=== PATIENT | female | born 1980 | race Caucasian/White ===

== ENCOUNTER 2017-11-09 04:18 | Observation (INO) | payer MEDICAID, OTHER ==
[~2017-11-09] VITALS: Ht 157.5 cm; Wt 64.0 kg
[2017-11-09 05:33] LABS: BASOPHILS # (AUTO) 0.04 x10^3/uL (0-0.1); BASOPHILS % (AUTO) 1 % (0-1); EOSINOPHILS % (AUTO) 0 % (1-7); LYMPHOCYTES # (AUTO) 2.39 x10^3/uL (1-3.4); LYMPHOCYTES % (AUTO) 27 % (22-44); MD NO; MEAN CORPUSCULAR HEMOGLOBIN 29.7 pg (27.0-34.8); MEAN CORPUSCULAR HGB CONC 33.8 g/dL (32.4-35.8); MEAN CORPUSCULAR VOLUME 87.8 fL (80-100); MEAN PLATELET VOLUME 8.8 fL (7.4-10.4); MONOCYTES # (AUTO) 0.72 x10^3/uL (0.2-0.8); MONOCYTES % (AUTO) 8 % (2-9); NEUTROPHILS % (AUTO) 64 % (42-75); PLATELET COUNT 223 x10^3/uL (130-400); RED BLOOD COUNT 4.57 x10^6/uL (3.82-5.3); RED CELL DISTRIBUTION WIDTH 13.9 % (9.6-15.2)
[2017-11-09 05:41] LABS: ALANINE AMINOTRANSFERASE 21 U/L (12-78); ALBUMIN 3.9 g/dL (3.4-5.0); ANION GAP 5 mmol/L (5-15); CALCIUM 8.5 mg/dL (8.5-10.1); CHLORIDE 112 mmol/L (98-107); CREATININE 0.77 mg/dL (0.55-1.02); SALICYLATE LEVEL 1.7 mg/dL (2.8-20.0)
[2017-11-09 05:44] LABS: ACETAMINOPHEN < 2 mcg/mL (10-30)
[2017-11-09 05:46] LABS: ALKALINE PHOSPHATASE 130 U/L (45-117); BILIRUBIN,TOTAL 0.6 mg/dL (0.2-1.0); TOTAL PROTEIN 7.6 g/dL (6.4-8.2)
[2017-11-09 05:48] LABS: AMPHETAMINE SCREEN, URINE Negative (Negative); BARBITURATE SCREEN, URINE Negative (Negative); BENZODIAZEPINE SCREEN, URINE Negative (Negative); CANNABINOID SCREEN, URINE Positive (Negative); COCAINE SCREEN, URINE Negative (Negative); METHADONE SCREEN, URINE Negative (Negative); OPIATE SCREEN, URINE Negative (Negative)
[2017-11-09] MEDS ORDERED: SODIUM CHLORIDE 0.9% 1,000ML IVBOLUS ONE (07:30)
[2017-11-09] MEDS ORDERED: hydrALAzine 20 MG/ML, 1ML IVPush PRN (09:00)
[2017-11-09] MEDS ORDERED: LABETALOL 5MG/ML, 20ML IVPush PRN (09:00)
[2017-11-09] MEDS ORDERED: HEPARIN 5,000 UNITS/ML, 1ML ONE (09:13)
[2017-11-09] MEDS ORDERED: TRAZ50TA18 PO (09:52)
[2017-11-09] MEDS ORDERED: CLON0.5T PO (09:52)
[2017-11-09] MEDS ORDERED: ANTIHYPERTENSIVE (09:52)
[2017-11-09] MEDS ORDERED: ANTIDEPRESSANT (09:53)
[2017-11-09] MEDS ORDERED: PROP60CA8 PO (09:54)
[2017-11-09] MEDS: HEPARIN 5,000 UNITS/ML, 1ML SQ SCH ×2 (09:54→17:00)
[2017-11-09 11:30] VITALS: BP_SYST 120; BP_SYST 137; BP_DIAS 78; BP_DIAS 88
[2017-11-09 20:00] VITALS: BP 111/60
[2017-11-10] MEDS: HEPARIN 5,000 UNITS/ML, 1ML SQ SCH ×3 (01:00→16:55)
[2017-11-10 05:45] LABS: ALBUMIN 3.3 g/dL (3.4-5.0); ANION GAP 5 mmol/L (5-15); CALCIUM 7.8 mg/dL (8.5-10.1); CHLORIDE 109 mmol/L (98-107)
[2017-11-10 05:48] LABS: ALANINE AMINOTRANSFERASE 17 U/L (12-78); ALKALINE PHOSPHATASE 80 U/L (45-117); BILIRUBIN,TOTAL 1.2 mg/dL (0.2-1.0); CREATININE 0.79 mg/dL (0.55-1.02); TOTAL PROTEIN 6.7 g/dL (6.4-8.2)
[2017-11-10 07:37] VITALS: BP 109/73
[2017-11-10] MEDS: ACETAMINOPHEN 325 MG TABLET PO PRN (19:19)
[2017-11-10 19:28] VITALS: BP 99/67
[2017-11-10] MEDS: TEMAZEPAM 15 MG CAPSULE PO PRN (23:53)
[2017-11-11] MEDS ORDERED: TEMAZEPAM 15 MG CAPSULE PO PRN
[2017-11-11] MEDS: HEPARIN 5,000 UNITS/ML, 1ML SQ SCH ×3 (01:00→17:08)
[2017-11-11 08:56] VITALS: BP 122/81
[2017-11-11] MEDS ORDERED: BUSP5TAB2 PO (13:28)
[2017-11-11] MEDS ORDERED: PRAZ2CAP2 PO (13:28)
[2017-11-11] MEDS ORDERED: MELATONIN 5 MG TABLET PO PRN (15:00)
[2017-11-11] MEDS ORDERED: SERT100T PO (15:30)
[2017-11-11] MEDS ORDERED: SERTRALINE 50MG TABLET ONE (18:20)
[2017-11-11] MEDS: SERTRALINE 100MG TABLET PO SCH ×2 (19:11→22:00)
[2017-11-11] MEDS: PRAZOSIN 2 MG CAPSULE PO SCH (21:00)
[2017-11-11] MEDS: ACETAMINOPHEN 325 MG TABLET PO PRN (22:05)
[2017-11-11] MEDS ORDERED: PRAZOSIN 2 MG CAPSULE ONE (22:06)
[2017-11-11 23:16] VITALS: BP 96/66
[2017-11-12] MEDS: HEPARIN 5,000 UNITS/ML, 1ML SQ SCH ×3 (01:00→17:00)
[2017-11-12 07:55] VITALS: BP 131/96
[2017-11-12] MEDS: ONDANSETRON ODT 4 MG PO PRN ×2 (09:53→17:46)
[2017-11-12] MEDS ORDERED: PROMETHAZINE 25MG TABLET PO PRN (19:30)
[2017-11-12 20:25] VITALS: BP 103/67
[2017-11-12] MEDS ORDERED: PRAZOSIN 2 MG CAPSULE PO SCH (21:00)
[2017-11-12] MEDS: TEMAZEPAM 15 MG CAPSULE PO PRN (21:13)
[2017-11-12] MEDS: PRAZOSIN 2 MG CAPSULE PO SCH (21:14)
[2017-11-13] MEDS: HEPARIN 5,000 UNITS/ML, 1ML SQ SCH ×2 (01:00→09:00)
[2017-11-13 07:23] VITALS: BP 121/74
[2017-11-13] MEDS: SERTRALINE 100MG TABLET PO SCH (10:29)
== END 2017-11-13 17:46 | disposition home or self-care (01) ==
LOC: ED 07:17 → SUATTDRO 08:38 → EDIP 08:41 → INTOOBSV 08:41 → 2N 12:11
PROVIDERS: ADMIT Internal Medicine; ATTEND Internal Medicine
DX: T42.4X2A Poisoning by benzodiazepines, intentional self-harm, initial encounter (principal); S05.12XA Contusion of eyeball and orbital tissues, left eye, initial encounter; F10.120 Alcohol abuse with intoxication, uncomplicated; F32.9 Major depressive disorder, single episode, unspecified; F41.9 Anxiety disorder, unspecified; Z91.5 Personal history of self-harm; Y04.0XXA Assault by unarmed brawl or fight, initial encounter; Y93.89 Activity, other specified; Y92.89 Other specified places as the place of occurrence of the external cause; Y99.8 Other external cause status
CPT/HCPCS: 36415; 70480; 80053; 80307; 80329; 84703; 85025; 93005; 96372; 99285; G0378; J1644; Q0162; Q0169; G0480